=== PATIENT | female | born 1975 | race Hispanic/Latino ===

== ENCOUNTER 2018-04-06 16:04 | Emergency (ER) | payer BC, OTHER ==
[2018-04-06 16:45] VITALS: RESP 18; O2SAT 100
[2018-04-06] MEDS ORDERED: Oxycodone/Acetaminophen 5/325 mg Tab PO STA ×2 (17:16→18:46)
--- NOTE | 2018-04-06 17:24 | ED PDOC ---
Arrival/HPI - General Chief Complaint: Upper Extremity Problem/Injury Time Seen by Provider: 04/06/18 16:19 Historian: Patient - History of Present Illness Narrative History of Present Illness (Text): 04/06/18 17:15 43 F with no significant PMHx presents with cc of left shoulder pain for the past 5 days. Pt reports she has limited mobility and a stiff shoulder radiating to left neck area. Patient states she has never had this pain before. Patient notes that she vomited today, possibly due to taking too many Ibuprofen. Patient states she used OTC cream and Ibuprofen, with no significant relief. Pt denies any injury or any other complaints. PMD: Owsald Sanders Time/Duration: > week (Pt notes symptoms for past 5 days) Symptom Onset: Sudden Symptom Course: Unchanged Activities at Onset: Light Past Medical History - Provider Review Nursing Documentation Reviewed: Yes - Endocrine/Metabolic Hx Diabetes Mellitus Type 1: Yes - Psychiatric Hx Substance Use: No - Anesthesia Hx Anesthesia: Yes Hx Anesthesia Reactions: No Hx Malignant Hyperthermia: No Family/Social History - Physician Review Nursing Documentation Reviewed: Yes Family/Social History: Unknown Family HX Smoking Status: Heavy Smoker > 10 Cigarettes Daily Hx Alcohol Use: No Hx Substance Use: No Allergies/Home Meds Allergies/Adverse Reactions: Allergies Penicillins Allergy (Verified 04/06/18 16:41) ANAPHYLAXIS Review of Systems - Physician Review All systems were reviewed & negative as marked: Yes (All other systems negative except that noted in the HPI.) Physical Exam - Physical Exam Narrative Physical Exam (Text): 04/06/18 19:47 Gen: VS reviewed, alert, well developed, well nourished, nontoxic, mild distress Eye: EOMI, PERRL Neck: no JVD, supple Ext: no edema, 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; the left shoulder has limited abduction and internal rotation second to the pain, neurovascular intact in the involved left arm Skin: good color, no rash, no cyanosis Psych: responds appropriately to questions, normal affect Neuro: oriented x3, CN2-12 intact grossly, motor intact, sensation intact Vital Signs Reviewed: Yes Vital Signs Temp Pulse Resp BP Pulse Ox 04/06/18 16:05 98 F 20 L 18 119/79 100 Temperature: Afebrile Blood Pressure: Normal Pulse: Tachycardic Respiratory Rate: Normal Appearance: Positive for: Well-Appearing, Non-Toxic Pain Distress: Mild Mental Status: Positive for: Alert and Oriented X 3 Medical Decision Making ED Course and Treatment: 04/06/18 17:15 Impression: 43 F presents to the Emergency department for left shoulder pain for the past 5 days Differential Diagnosis included but are not limited to: Plan: -- Drug screen, urine -- Percocet 5/325mg -- POC Urine test -- X-Ray of left shoulder -- Reassess and disposition Progress Notes: 04/06/18 18:55 patient confirms her current medications: lantus and vitamin c. states that she took ibuprofen for the arm pain today. she states that she took her boyfriends percocet for pain. 04/06/18 19:43 patient states ibuprofen worked for her pain, percocet in the Emergency department did not help. patient is comfortable going home and referral to a [facility] and ortho. - RAD Interpretation Narrative RAD Interpretations (Text): 04/06/18 20:00 shoulder xr my read: no fx, no dislocation Radiology Orders: 04/06/18 16:57 SHOULDER LEFT [RAD] Stat - Medication Orders Current Medication Orders: Discontinued Medications Oxycodone/Acetaminophen (Percocet 5/325 Mg Tab) 1 tab PO STAT STA Stop: 04/06/18 17:17 - Scribe Statement The provider has reviewed the documentation as recorded by the Scribe Molly Schmidt All medical record entries made by the Scribe were at my direction and personally dictated by me. I have reviewed the chart and agree that the record accurately reflects my personal performance of the history, physical exam, medical decision making, and the department course for this patient. I have also personally directed, reviewed, and agree with the discharge instructions and disposition. Disposition/Present on Arrival - Present on Arrival Any Indicators Present on Arrival: No History of DVT/PE: No History of Uncontrolled Diabetes: No Urinary Catheter: No History of Decub. Ulcer: No History Surgical Site Infection Following: None - Disposition Have Diagnosis and Disposition been Completed?: Yes Diagnosis: Radiculopathy, cervical, Shoulder pain Disposition: HOME/ ROUTINE Disposition Time: 19:44 Patient Plan: Discharge Patient Problems: Current Active Problems Problem Status Onset Radiculopathy, cervical Acute Shoulder pain Acute Condition: STABLE Discharge Instructions (ExitCare): Radiculopathy (DC), Shoulder Pain (DC) Additional Instructions: follow up with the refund specialist. you may need further imaging of the neck or shoulder region if the pain persists. return for any new or worsening symptoms. Prescriptions: Ibuprofen [Motrin Tab] 800 mg PO TID #21 tab Lidocaine 1 each TP Q12 #14 adh..patch Referrals: John Wilson MD [Staff Provider] - Follow up with primary [employer] [Outside] - Follow up with primary Joelle Allison MD [Medical Doctor] - Follow up with primary Forms: [employer] (Macedonian), WORK NOTE
[2018-04-06 18:45] LABS: BARBITURATES, UR POSITIVE (NEGATIVE); BENZODIAZEPINES, UR POSITIVE (NEGATIVE); OPIATES, UR POSITIVE (NEGATIVE); PHENCYCLIDINE, UR NEGATIVE (NEGATIVE)
[2018-04-06] MEDS ORDERED: Lidocaine 5% Patch TD STA (18:46)
[2018-04-06 20:49] VITALS: BP 118/80; PULSE 82; TEMP 98.1
--- NOTE | 2018-04-07 08:19 | RAD ---
PROCEDURE: Radiographs of the Left Shoulder HISTORY: pain COMPARISON: None available. FINDINGS: BONES: No acute displaced fracture. The distal clavicle and underlying ribs appear intact. JOINTS: No acute dislocation. SOFT TISSUES: Soft tissues appear unremarkable. No evidence of radiopaque foreign body. IMPRESSION: No acute displaced fracture or dislocation evident. If symptoms persist or if there is continued clinical concern, x-ray follow-up in 7-10 days should be considered.
== END 2018-04-06 20:10 | disposition home or self-care (01) ==
LOC: ED 16:04
DX: M54.12 Radiculopathy, cervical region (principal); M25.512 Pain in left shoulder
CPT/HCPCS: 73030; 99284; G0480